=== PATIENT | female | born 1980 | race Caucasian/White ===

== ENCOUNTER 2019-07-05 13:17 | Emergency (ER) | payer MEDICAID ==
[~2019-07-05] VITALS: Ht 157.5 cm; Wt 96.0 kg
[2019-07-05 16:15] VITALS: BP 115/79
== END 2019-07-05 17:25 | disposition home or self-care (01) ==
LOC: ER 13:17
DX: T19.2XXA Foreign body in vulva and vagina, initial encounter (principal); X58.XXXA Exposure to other specified factors, initial encounter; Y93.89 Activity, other specified; Y92.89 Other specified places as the place of occurrence of the external cause
CPT/HCPCS: 99284

== ENCOUNTER 2023-03-25 11:47 | Emergency (ER) | payer MEDICAID ==
[~2023-03-25] VITALS: Ht 157.5 cm; Wt 98.4 kg
[2023-03-25 11:52] VITALS: BP 119/71; PULSE 105; RESP 16; TEMP 98.7; O2SAT 98
[2023-03-25] MEDS ORDERED: ACETAMINOPHEN 325MG TABLET PO PRN (13:00)
== END 2023-03-25 13:30 | disposition left against medical advice (07) ==
LOC: ER 11:47
DX: Z53.21 Procedure and treatment not carried out due to patient leaving prior to being seen by health care provider (principal)
CPT/HCPCS: 99281